=== PATIENT | male | born 1995 | race Hispanic/Latino ===

== ENCOUNTER → 2017-10-07 | Outpatient (CLI) | payer BC | LOC: GMATM 19:07 | PROVIDERS: ATTEND Nurse Practitioner Family | DX: R31.21 Asymptomatic microscopic hematuria (principal) ==

== ENCOUNTER → 2017-10-07 | Outpatient (CLI) | payer BC ==
--- NOTE | 2017-10-07 16:16 | RAD ---
EXAM DESCRIPTION: Chest,2 Views CLINICAL HISTORY: 22 years Male FEVER COMPARISON: 09/06/2011 FINDINGS: The cardiomediastinal silhouette appears unremarkable. No consolidating infiltrates or pleural effusions. No pneumothorax. There is a focal area of density in the right upper lobe which overlies the anterior third rib. This was present on the patient's previous examination and may be related to pleural parenchymal scarring. This is stable.. IMPRESSION: No acute abnormality is identified. Electronically signed by: Rhonda Winchester MD 10/07/2017 4:13 PM CDT
== END ==
LOC: GMATM 15:45
PROVIDERS: ATTEND Nurse Practitioner Family
DX: R50.9 Fever, unspecified (principal)

== ENCOUNTER → 2019-03-12 | Outpatient (CLI) | payer BC | LOC: GMATM 14:12 | PROVIDERS: ATTEND Nurse Practitioner Family | DX: M79.7 Fibromyalgia (principal); J02.9 Acute pharyngitis, unspecified ==

== ENCOUNTER → 2019-03-22 | Outpatient (CLI) | payer BC | LOC: LAB.O 08:43 | PROVIDERS: ATTEND Family Medicine | DX: R53.82 Chronic fatigue, unspecified (principal); E29.1 Testicular hypofunction; R73.09 Other abnormal glucose ==

== ENCOUNTER → 2020-02-11 | Outpatient (CLI) | payer BC | LOC: YCFC.O 11:25 | PROVIDERS: ATTEND Family Medicine | DX: Z20.828 Contact with and (suspected) exposure to other viral communicable diseases (principal) ==

== ENCOUNTER → 2020-05-07 | Outpatient (CLI) | payer BC | LOC: YCFC.O 15:15 | PROVIDERS: ATTEND Family Medicine | DX: Z20.828 Contact with and (suspected) exposure to other viral communicable diseases (principal) ==